=== PATIENT | female | born 2000 | race Caucasian/White ===

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

== ENCOUNTER 2022-01-09 08:03 | Emergency (ER) | payer OTHER ==
[~2022-01-09] VITALS: Ht 157.5 cm; Wt 74.8 kg
[2022-01-09 08:04] VITALS: BP 129/84
[2022-01-09] MEDS ORDERED: ACETAMINOPHEN EXTRA STRENGTH 500 MG TAB PO ONE (08:35)
[2022-01-09] MEDS ORDERED: LIDOCAINE 5% 1 EA PATCH TP SCH (08:35)
[2022-01-09] MEDS ORDERED: LID5T TP (10:30)
[2022-01-09] MEDS ORDERED: IBUP-2213 PO (10:30)
[2022-01-09] MEDS ORDERED: METH-1681 PO (10:30)
[2022-01-09 10:47] VITALS: BP 130/78
== END 2022-01-09 10:47 | disposition home or self-care (01) ==
LOC: MED 08:03
DX: M62.838 Other muscle spasm (principal); Z20.822 Contact with and (suspected) exposure to COVID-19; J06.9 Acute upper respiratory infection, unspecified
CPT/HCPCS: 71045; 81002; 81025; 87426; 99284; Q0092

== ENCOUNTER 2022-05-19 09:46 | Emergency (ER) | payer OTHER ==
[~2022-05-19] VITALS: Ht 157.5 cm; Wt 79.6 kg
[~2022-05-19 09:46] MED LIST: IBUP-2213 PO; LID5T TP; METH-1681 PO
[2022-05-19 09:53] VITALS: BP 152/94
--- NOTE | 2022-05-19 10:25 | NUR ---
21/F PRESENTS TO ED WITH C/O RIGHT SIDED CHEST PAIN AND EPISODES OF SOB X2 DAYS. PATIENT DENIES RECENT INJURY, TRAUMA OR HEAVY LIFTING. REPORTS BEING SEEN HERE FOR SIMILAR SYMPTOMS IN THE PAST, PATIENT DENIES COUGH, FEVERS OR RECENT SICK CONTACTS, REPORTS NEGATIVE AT HOME COVID TEST.
[2022-05-19] MEDS ORDERED: ALBU0.0912 INH (10:42)
[2022-05-19 10:55] VITALS: BP 152/94
--- NOTE | 2022-05-19 10:55 | NUR ---
Patient discharged with v/s stable. Written and verbal after care instructions ABOUT COSTOCHONDRITIS given and explained. Patient alert, oriented and verbalized understanding of instructions. Ambulatory with steady gait. All questions addressed prior to discharge. ID band removed. Patient advised to follow up with PMD. Rx of PROVENTIL HFA MDI given. Patient educated on indication of medication including possible reaction and side effects. Opportunity to ask questions provided and answered.
== END 2022-05-19 10:55 | disposition home or self-care (01) ==
LOC: MED 09:46
DX: M94.0 Chondrocostal junction syndrome [Tietze] (principal); F17.210 Nicotine dependence, cigarettes, uncomplicated
CPT/HCPCS: 99283

== ENCOUNTER 2022-05-30 10:30 | Emergency (ER) | payer OTHER ==
[~2022-05-30] VITALS: Ht 157.5 cm; Wt 78.5 kg
[~2022-05-30 10:30] MED LIST changes: +ALBU0.0912 INH
[2022-05-30 10:35] VITALS: BP 139/89
[2022-05-30] MEDS ORDERED: DICYCLOMINE HCL LIQUID 20 MG, ALUMINUM HYD/MAG/SIMETHICONE 30 ML, LIDOCAINE VISCOUS 2% ... PO ONE ×3 (11:25)
[2022-05-30] MEDS ORDERED: ACETAMINOPHEN EXTRA STRENGTH 500 MG TAB PO ONE (11:25)
--- NOTE | 2022-05-30 11:56 | NUR ---
PT AMBULATED TO BED 05.
--- NOTE | 2022-05-30 12:05 | NUR ---
lab at bedside
[2022-05-30] MEDS ORDERED: DICYCLOMINE HCL LIQUID 10 MG/5 ML UDC ONE (12:11)
[2022-05-30] MEDS ORDERED: ALUMINUM HYD/MAG/SIMETHICONE 30 ML UDC ONE (12:11)
[2022-05-30 12:27] LABS: ALBUMIN 3.9 g/dL (3.4-5.0); ANION GAP 11.9 (8-16); CARBON DIOXIDE 24.1 mmol/L (21-32); CREATININE 0.6 mg/dL (0.6-1.3); TOTAL BILIRUBIN 0.5 mg/dL (0.0-1.0)
[2022-05-30 12:35] LABS: BASOPHILS % (AUTO) 0.5 % (0.0-2.0); EOSINOPHILS % (AUTO) 0.2 % (0.0-4.0); HEMATOCRIT 40.3 % (36-48); HEMOGLOBIN 13.7 g/dL (12.0-16.0); LYMPHOCYTES # (AUTO) 1.1 K/uL (2.5-16.5); LYMPHOCYTES % (AUTO) 11.3 % (20.5-51.1); MEAN CORPUSCULAR HEMOGLOBIN 31 pg (27-31); MEAN CORPUSCULAR HGB CONC 34 g/dL (33-37); MEAN CORPUSCULAR VOLUME 89.7 fL (80-94); MONOCYTES % (AUTO) 10.1 % (1.7-9.3); NEUTROPHILS # (AUTO) 7.5 K/uL (1.8-7.7); NEUTROPHILS % (AUTO) 77.9 % (42.2-75.2); PLATELET COUNT (AUTO) 260 K/uL (140-450); WHITE BLOOD COUNT (AUTO) 9.6 K/uL (4.5-11.0)
[2022-05-30 12:35] LABS: BILIRUBIN,URINE NEGATIVE (NEGATIVE); BLOOD, URINE NEGATIVE (NEGATIVE); COLOR,URINE YELLOW (YELLOW); LEUKOCYTE ESTERASE ,URINE 1+ (NEGATIVE); NITRITE, URINE NEGATIVE (NEGATIVE); PH,URINE 6.5 (5.0-9.0); UGLUCOSE NEGATIVE (NEGATIVE)
[2022-05-30 12:38] LABS: APPEARANCE,URINE SLIGHTLY HAZY (CLEAR)
[2022-05-30] MEDS ORDERED: FAMOTIDINE 20 MG TAB PO ONE (12:40)
[2022-05-30] MEDS ORDERED: KETOROLAC 30 MG/ML VIAL IM ONE (12:40)
[2022-05-30 12:45] LABS: RBC,URINE NONE SEEN /HPF (0-5)
[2022-05-30 12:46] LABS: CALCIUM OXALATE CRYSTALS,UR None Seen /HPF (None Seen); COARSE GRANULAR CASTS,URINE None Seen /LPF (None Seen); FINE GRANULAR CASTS,URINE None Seen /LPF (None Seen); HYALINE CASTS, URINE None Seen /LPF (None Seen); OTHER CASTS, URINE None Seen /LPF (None Seen); OTHER CRYSTALS,URINE None Seen /HPF (None Seen); RED BLOOD CELL CASTS,URINE None Seen /LPF (None Seen); TRICHOMONAS,URINE None Seen /HPF (None Seen); TRIPLE PHOSPHATE CRYSTAL,UR None Seen /HPF (None Seen); URIC ACID CRYSTALS,URINE None Seen /HPF (None Seen); URINE AMORPHOUS URATE None Seen /HPF (None Seen); WAXY CASTS,URINE None Seen /LPF (None Seen); YEAST,URINE None Seen /HPF (None Seen)
--- NOTE | 2022-05-30 12:49 | NUR ---
COVID SWAB SENT TO LAB
--- NOTE | 2022-05-30 13:07 | NUR ---
US AT BEDSIDE
[2022-05-30] MEDS ORDERED: CEPH-588 PO (13:44)
[2022-05-30] MEDS ORDERED: cephALEXin 500 MG CAP PO ONE (13:45)
[2022-05-30] MEDS ORDERED: BEN10 PO (13:47)
[2022-05-30] MEDS ORDERED: OMEP40EC23 PO (13:47)
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
[2022-05-30 14:01] VITALS: BP 122/75
--- NOTE | 2022-05-30 14:03 | NUR ---
Patient discharged with v/s stable. Written and verbal after care instructions given and explained. Patient alert, oriented and verbalized understanding of instructions. Ambulatory with steady gait. All questions addressed prior to discharge. ID band removed. Patient advised to follow up with PMD. Rx of BENTYL,KEFLEX,PRILOSEC given. Patient educated on indication of medication including possible reaction and side effects. Opportunity to ask questions provided and answered.
== END 2022-05-30 14:03 | disposition home or self-care (01) ==
LOC: MED 10:30
DX: K29.70 Gastritis, unspecified, without bleeding (principal); Z20.822 Contact with and (suspected) exposure to COVID-19; N39.0 Urinary tract infection, site not specified; K76.0 Fatty (change of) liver, not elsewhere classified
CPT/HCPCS: 36415; 76705; 80053; 81001; 81025; 83690; 85025; 87086; 87426; 96372; 99284; J1885; Q0092

== ENCOUNTER 2022-06-01 09:02 | Emergency (ER) | payer OTHER ==
[~2022-06-01] VITALS: Ht 157.5 cm; Wt 77.7 kg
[~2022-06-01 09:02] MED LIST changes: +BEN10 PO; +CEPH-588 PO; +OMEP40EC23 PO
[2022-06-01 09:22] VITALS: BP 149/119
--- NOTE | 2022-06-01 09:49 | NUR ---
BIB SELF C/O 06/18 GENERALIZED ABDOMINAL PAIN, N/V X 2 DAYS. PMH: GASTRITIS.SKIN IS PINK/WARM/DRY; AAOX4 WITH EVEN AND STEADY GAIT; ABD SOFT, NOTENSERNESS. LUNGS CLEAR BL; HR EVEN AND REGULAR; PT DENIES ANY FEVER, CP, SOB, OR COUGH AT THIS TIME
[2022-06-01] MEDS ORDERED: TRAM50TA1 PO (10:31)
[2022-06-01] MEDS ORDERED: SUCR1TAB35 PO (10:31)
[2022-06-01 10:42] VITALS: BP 121/87
--- NOTE | 2022-06-01 10:42 | NUR ---
Patient discharged with v/s stable. Written and verbal after care instructions given and explained. Patient alert, oriented and verbalized understanding of instructions. Ambulatory with steady gait. All questions addressed prior to discharge. ID band removed. Patient advised to follow up with PMD. Rx of CARAFATE& ULTRAM given. Patient educated on indication of medication including possible reaction and side effects. Opportunity to ask questions provided and answered.
== END 2022-06-01 10:42 | disposition home or self-care (01) ==
LOC: MED 09:02
DX: R10.13 Epigastric pain (principal); K21.9 Gastro-esophageal reflux disease without esophagitis; Z79.899 Other long term (current) drug therapy
CPT/HCPCS: 81002; 81025; 99283

== ENCOUNTER 2022-09-11 12:29 | Emergency (ER) | payer OTHER ==
[~2022-09-11] VITALS: Ht 157.5 cm; Wt 65.8 kg
[~2022-09-11 12:29] MED LIST changes: +SUCR1TAB35 PO; +TRAM-748 PO
[2022-09-11 12:49] VITALS: BP 125/67
--- NOTE | 2022-09-11 13:13 | NUR ---
Note sonyclint in EDM - 09/11/22 at 1507 by [id number] Patient discharged with v/s stable. Written and verbal after care instructions given and explained. Patient alert, oriented and verbalized understanding of instructions. Ambulatory with steady gait. All questions addressed prior to discharge. ID band removed. Patient advised to follow up with PMD. Rx of NAPROXEN, PROMETHAZINE-DM given. Patient educated on indication of medication including possible reaction and side effects. Opportunity to ask questions provided and answered.
[2022-09-11] MEDS ORDERED: SUD30 PO ×2 (14:55→14:58)
[2022-09-11] MEDS ORDERED: PROM118S5 PO ×2 (14:55→14:58)
[2022-09-11] MEDS ORDERED: IBUP-2213 PO ×2 (14:55→14:58)
--- NOTE | 2022-09-11 15:07 | NUR ---
Patient discharged with v/s stable. Written and verbal after care instructions given and explained. Patient alert, oriented and verbalized understanding of instructions. Ambulatory with steady gait. All questions addressed prior to discharge. ID band removed. Patient advised to follow up with PMD. Rx of SUDAFED given. Patient educated on indication of medication including possible reaction and side effects. Opportunity to ask questions provided and answered.
== END 2022-09-11 15:07 | disposition home or self-care (01) ==
LOC: MED 12:29
DX: J06.9 Acute upper respiratory infection, unspecified (principal); Z20.822 Contact with and (suspected) exposure to COVID-19; Z79.899 Other long term (current) drug therapy; Z79.891 Long term (current) use of opiate analgesic; Z79.2 Long term (current) use of antibiotics; Z79.1 Long term (current) use of non-steroidal anti-inflammatories (NSAID)
CPT/HCPCS: 99283

== ENCOUNTER 2022-10-13 07:15 | Emergency (ER) | payer OTHER ==
[~2022-10-13] VITALS: Ht 157.5 cm; Wt 75.7 kg
[~2022-10-13 07:15] MED LIST changes: +PROM118S5 PO; +SUD30 PO
[2022-10-13 07:29] VITALS: BP 151/92
[2022-10-13] MEDS ORDERED: KETOROLAC 30 MG/ML VIAL IM ONE (07:50)
--- NOTE | 2022-10-13 07:51 | NUR ---
More and Flu dropped off at lab.
[2022-10-13] MEDS ORDERED: MUC600 PO (08:28)
[2022-10-13] MEDS ORDERED: BENZ200C4 PO (08:28)
[2022-10-13] MEDS ORDERED: SUD30 PO (08:28)
[2022-10-13] MEDS ORDERED: IBUP-2213 PO (08:28)
[2022-10-13 09:07] VITALS: BP 151/92
== END 2022-10-13 09:08 | disposition home or self-care (01) ==
LOC: MED 07:15
DX: J06.9 Acute upper respiratory infection, unspecified (principal); Z20.822 Contact with and (suspected) exposure to COVID-19; M94.0 Chondrocostal junction syndrome [Tietze]; F12.90 Cannabis use, unspecified, uncomplicated
CPT/HCPCS: 71045; 87426; 87804; 96372; 99284; J1885

== ENCOUNTER 2023-09-07 07:46 | Emergency (ER) | payer OTHER ==
[~2023-09-07] VITALS: Ht 157.5 cm; Wt 79.9 kg
[~2023-09-07 07:46] MED LIST changes: +BENZ200C4 PO; +MUC600 PO
[2023-09-07 07:50] VITALS: BP 138/98; PULSE 89; RESP 18; TEMP 98.4; O2SAT 99
[2023-09-07] MEDS ORDERED: KETOROLAC 30 MG/ML VIAL IM ONE (08:45)
[2023-09-07] MEDS ORDERED: NAPR-54 PO (08:48)
[2023-09-07] MEDS ORDERED: CYCL-711 PO (08:48)
[2023-09-07 10:27] VITALS: BP 127/79; PULSE 86; RESP 18; TEMP 98.1; O2SAT 100
== END 2023-09-07 10:27 | disposition home or self-care (01) ==
LOC: MED 07:46
DX: S16.1XXA Strain of muscle, fascia and tendon at neck level, initial encounter (principal); S46.911A Strain of unspecified muscle, fascia and tendon at shoulder and upper arm level, right arm, initial encounter; Z79.899 Other long term (current) drug therapy; Z79.1 Long term (current) use of non-steroidal anti-inflammatories (NSAID); Z79.2 Long term (current) use of antibiotics; X58.XXXA Exposure to other specified factors, initial encounter; Y92.89 Other specified places as the place of occurrence of the external cause; Y93.89 Activity, other specified; Y99.8 Other external cause status
CPT/HCPCS: 81025; 96372; 99283; J1885

== ENCOUNTER 2023-09-29 11:44 | Emergency (ER) | payer OTHER ==
[~2023-09-29] VITALS: Ht 167.6 cm; Wt 72.6 kg
[~2023-09-29 11:44] MED LIST changes: +CYCL-711 PO; +NAPR-54 PO
[2023-09-29 12:08] VITALS: BP 144/109; PULSE 89; RESP 18; TEMP 98; O2SAT 98
[2023-09-29] MEDS ORDERED: IBUP-2213 PO (14:20)
[2023-09-29 15:00] VITALS: BP 135/88; PULSE 89; RESP 18; TEMP 98; O2SAT 98
== END 2023-09-29 15:00 | disposition home or self-care (01) ==
LOC: MED 11:44
DX: S20.229A Contusion of unspecified back wall of thorax, initial encounter (principal); Z79.899 Other long term (current) drug therapy; Z79.1 Long term (current) use of non-steroidal anti-inflammatories (NSAID); Z79.2 Long term (current) use of antibiotics; W01.198A Fall on same level from slipping, tripping and stumbling with subsequent striking against other object, initial encounter; Y92.89 Other specified places as the place of occurrence of the external cause; Y93.89 Activity, other specified; Y99.8 Other external cause status
CPT/HCPCS: 72072; 99283

== ENCOUNTER 2024-03-16 14:29 | Emergency (ER) | payer OTHER ==
[~2024-03-16] VITALS: Ht 157.5 cm; Wt 79.9 kg
[~2024-03-16 14:29] MED LIST changes: +NAPR-337 PO; -NAPR-54 PO; +SUCR-3 PO; -SUCR1TAB35 PO
[2024-03-16 14:40] VITALS: BP 144/95; PULSE 105; RESP 18; TEMP 97.3; O2SAT 98
[2024-03-16] MEDS: KETOROLAC 30 MG/ML VIAL IM ONE (16:00)
== END 2024-03-16 17:00 | disposition home or self-care (01) ==
LOC: MED 14:29
DX: S93.505A Unspecified sprain of left lesser toe(s), initial encounter (principal); Z79.1 Long term (current) use of non-steroidal anti-inflammatories (NSAID); Z79.2 Long term (current) use of antibiotics; Z79.899 Other long term (current) drug therapy; W01.0XXA Fall on same level from slipping, tripping and stumbling without subsequent striking against object, initial encounter; Y93.89 Activity, other specified; Y92.091 Bathroom in other non-institutional residence as the place of occurrence of the external cause; Y99.8 Other external cause status
CPT/HCPCS: 73660; 81025; 96372; 99283; J1885